=== PATIENT | male | born 1955 | race Caucasian/White ===

== ENCOUNTER 2020-12-14 08:54 | Day surgery (SDC) | payer MEDICARE, OTHER ==
[~2020-12-14] VITALS: Ht 180.3 cm; Wt 99.0 kg
[~2020-12-14 08:54] MED LIST: HYDROCHLOROTHIA25 MG PO; HYZAAR 100-251 EACH PO; LOSARTAN POTAS100 MG PO; MOBIC7.5 MG PO; NEURONTIN300 MG PO; REQUIP XL2 MG PO; ULTRAM50 MG PO
--- NOTE | 2020-12-14 11:44 | NUR ---
12/14/20 1144 Jenny Dominguez 1139 PT TO PACU SLEEPING BUT RESPONDS WHEN HIS NAME IS CALLED.
--- NOTE | 2020-12-14 13:48 | OR ---
[facility] [address] [place], [place] [address] Signed DATE OF OPERATION: 12/14/2020 SURGEON: Binu Wheatley MD PREOPERATIVE DIAGNOSIS: Colon surveillance. POSTOPERATIVE DIAGNOSES: 1. Sigmoid diverticulosis. 2. Mild proctitis. PROCEDURE: Total colonoscopy to cecum with biopsy of rectum. ANESTHESIA: Intravenous sedation, fentanyl 100 mcg and Versed 4 mg. INDICATION: This 65-year-old white man is a patient of Dr. Yip and underwent colonoscopy last in 2011, which was normal. He is symptom free currently. He is admitted at this time to undergo surveillance colonoscopy. He understand the risks of bleeding, infection, and perforation. He has no family history of colon cancer. FINDINGS: The prep was good. Complete colonoscopy was undertaken of the cecum without question. He had diverticula of the sigmoid colon and mild proctitis, but no other findings specifically, no polyps or cancer. DESCRIPTION OF PROCEDURE: The patient was brought to the endoscopy suite and placed in lateral decubitus position, given intravenous sedation to the point of slurred speech and nystagmus with full cardiopulmonary monitoring. Digital rectal examination was normal. An Olympus video colonoscope was passed in the rectum and manipulated throughout the colon noting diverticular change of the sigmoid and left colon. The scope was ultimately advanced to the cecum where the ileocecal valve and appendiceal orifice were identified and found to be normal. The scope was withdrawn from that point and examination throughout showed no sign of abnormality other than diverticulosis. In the rectum, there was mild proctitis lack of clarity of blood vessels. Biopsies were obtained though this may be related only to bowel prep. The scope was removed and Electronically Signed By: BINU WHEATLEY MD 12/14/20 1348 PATIENT NAME: NITESH HELLER OPERATIVE REPORT DATE OF : 51 REPORT #: [id number] PHYSICIAN: BINU WHEATLEY MD PCP: BRITTANY YIP MD REPORT IS CONFIDENTIAL AND NOT TO BE RELEASED WITHOUT AUTHORIZATION [facility] [address], [place] [address] Signed the patient was taken to the recovery room in good condition. CONCLUDING DIAGNOSIS: Diverticulosis and mild proctitis. PLAN: Recommend a repeat colonoscopy in 10 years based on current standard. High-fiber diet or fiber supplement also recommended. He will return to the ongoing care of Dr. Yip. MD GAL Graham/MODL /[id number] cc: Dr. Yip Copies: ~ Electronically Signed By: BINU WHEATLEY MD 12/14/20 1348 PATIENT NAME: NITESH HELLER OPERATIVE REPORT DATE OF : 51 REPORT #: [id number] PHYSICIAN: BINU WHEATLEY MD PCP: BRITTANY YIP MD REPORT IS CONFIDENTIAL AND NOT TO BE RELEASED WITHOUT AUTHORIZATION
--- NOTE | 2020-12-18 15:23 | PATH ---
[facility] [address] [place], [place] [address] Signed SPECIMEN(S): A RECTUM SPECIMEN SOURCE: A. RECTUM CLINICAL HISTORY: Colon screening. Postop: Mild proctitis, diverticulosis MICROSCOPIC DESCRIPTION: Histologic sections of all submitted blocks are examined by light microscopy. These findings, together with the gross examination, support the pathologic diagnosis. FINAL PATHOLOGIC DIAGNOSIS: Rectum, biopsy: - Rectal mucosa with no histopathologic abnormality. - Negative for active or chronic proctitis. - Negative for granulomas, dysplasia, or malignancy. NAL:cml:C2NR GROSS DESCRIPTION: The specimen, labeled "Nitesh Heller, #1," and designated on the requisition "rectum biopsy," is received in formalin and consists of two [id number] soft tissue fragments that measure 0.3 and 0.4 cm in greatest dimension. The specimen is entirely submitted in cassette (A1). FB (under the direct supervision of a pathologist) The Gross Description was prepared using a voice recognition system. The report was reviewed for accuracy; however, sound-alike word errors, addition and/or deletions may occur. If there is any question about this report, please contact Client Services. PERFORMING LABORATORY: The technical component was performed by [facility], [address] [place] [id number] (Histologist: Vonda Coughlin MD; CLIA# [id number]). [facility], [address] [address] (CLIA# [id number]). Diagnostician: Carolee Nelson MD Pathologist Electronically Signed 12/18/2020 PATIENT NAME: NITESH HELLER PATHOLOGY DATE OF : 51 REPORT #: [id number] PHYSICIAN: [facility] PCP: BRITTANY YIP MD REPORT IS CONFIDENTIAL AND NOT TO BE RELEASED WITHOUT AUTHORIZATION [address] [address] Signed Copies: ~ PATIENT NAME: NITESH HELLER PATHOLOGY DATE OF : 51 REPORT #: [id number] PHYSICIAN: [facility] PCP: BRITTANY YIP MD REPORT IS CONFIDENTIAL AND NOT TO BE RELEASED WITHOUT AUTHORIZATION
== END 2020-12-14 12:10 | disposition home or self-care (01) ==
LOC: OPS 08:54 → DS 08:57 → OPS 10:45 → DS 10:45 → OPS 12:10
PROVIDERS: ATTEND Surgery
PROC: 0DBP8ZX Excision of Rectum, Via Natural or Artificial Opening Endoscopic, Diagnostic (ICD-10-PCS; principal; 2020-12-14 10:45)
DX: Z12.11 Encounter for screening for malignant neoplasm of colon (principal); K57.30 Diverticulosis of large intestine without perforation or abscess without bleeding; K62.89 Other specified diseases of anus and rectum; I10 Essential (primary) hypertension; E66.9 Obesity, unspecified; Z68.31 Body mass index [BMI] 31.0-31.9, adult
CPT/HCPCS: 99153; G0500; J0690; J2250; J3010

== ENCOUNTER 2023-01-02 00:51 | Emergency (ER) | payer MEDICARE, OTHER ==
[~2023-01-02] VITALS: Ht 182.9 cm; Wt 106.1 kg
[~2023-01-02 00:51] MED LIST changes: +ALLERGY MEDICAT25 MG PO; +CATAPRES-TTS 21 EACH TD; +CEFPROZIL500 MG PO; +CELECOXIB200 MG PO; +CINNAMON500 MG PO; +IRON325 M1 PO; +ONE-A-DAY MEN'1 EAC4 PO; +OXYCODONE HCL5 MG PO; -REQUIP XL2 MG PO; +ROPINIROLE HCL3 MG PO; +SENNA LAX8.6 MG PO; +XARELTO10 MG PO
--- OUTSIDE RECORDS SUMMARY | 2023-01-02 00:54 | XMS ---
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 Marly has no Care Guidelines for this patient. Denise VISIT COUNT (12 MO.) 1 [place] [place] TOTAL 1 NOTE: Visits indicate total known visits. ED/UCC VISIT TRACKING (12 MO.) 01/02/2023 00:52 [facility] [place] TYPE: Emergency COMPLAINT: - POST OP ISSUE INPATIENT VISIT TRACKING (12 MO.) No inpatient visits to display in this time frame [email or web address]
[2023-01-02] MEDS ORDERED: MELOXICAM7.5 MG PO (01:12)
[2023-01-02] MEDS ORDERED: TRAMADOL HCL50 MG PO (01:14)
[2023-01-02] MEDS ORDERED: CEFPROZIL500 MG PO (01:14)
[2023-01-02] MEDS ORDERED: HYDROCODON-ACE1 EA10 PO (01:22)
[2023-01-02 02:01] VITALS: BP 163/105
== END 2023-01-02 02:02 | disposition home or self-care (01) ==
LOC: ED 00:51
DX: G89.18 Other acute postprocedural pain (principal); I10 Essential (primary) hypertension; Z88.5 Allergy status to narcotic agent; Z79.899 Other long term (current) drug therapy; Z79.891 Long term (current) use of opiate analgesic
CPT/HCPCS: 99283; A9270